=== PATIENT | male | born 1990 | race Caucasian/White ===

== ENCOUNTER 2017-10-04 06:27 | Emergency (ER) | payer MEDICAID ==
[~2017-10-04] VITALS: Ht 182.9 cm; Wt 87.1 kg
[2017-10-04 06:34] VITALS: BP 139/80
[2017-10-04] MEDS ORDERED: cefTRIAXone SOD 1,000 MG VL IM ONE (07:30)
== END 2017-10-04 08:07 | disposition home or self-care (01) ==
LOC: ER 06:39
DX: H66.91 Otitis media, unspecified, right ear (principal); R10.9 Unspecified abdominal pain; R07.0 Pain in throat
CPT/HCPCS: 87400; 96372; 99283; J0696